=== PATIENT | female | born 1990 | race Caucasian/White ===

== ENCOUNTER 2017-08-21 17:13 | Emergency (ER) | payer MEDICAID ==
--- NOTE | 2017-08-21 18:30 | ED Physician Chart ---
ED Chief Complaint/HPI - Patient Information Date Seen:: 08/21/17 Time Seen:: 18:25 Chief Complaint:: Epigastric pain History of Present Illness:: 27 yo female had epigastric pain for 3 days. Burning sensation. Radiating to back. Nausea, no vomiting. No diarrhea. No fever. Allergies:: Allergies Allergy/AdvReac Type Severity Reaction Status Date / Time No Known Allergies Allergy Verified 08/21/17 17:30 Vitals:: Vital Signs - 8 hr 08/21/17 17:31 Temp 96.6 F HR 70 RR 16 BP 127/78 O2 Sat % 98 ED Past Medical History - Past Medical History Past Medical History: No significant medical hx Social History: Non Smoker, No Alcohol, No Drug Use Surgical History: None ED Assessment - Assessment General Assessment: Gastritis ED Septic Shock - <6hrs of presentation: Vital Signs: Vital Signs - 8 hr 08/21/17 17:31 Temp 96.6 F HR 70 RR 16 BP 127/78 O2 Sat % 98
[2017-08-21] MEDS ORDERED: Metoclopramide 5 mg/mL 2mL Vial IVP STA (18:36)
[2017-08-21 19:53] LABS: HEMATOCRIT 37.1 % (41.0-60); HEMOGLOBIN 12.4 gm/dL (12-16); MEAN CELL VOLUME 85.3 fl (81-100); MEAN CORPUSCULAR HEMOGLOBIN 28.5 pg (27.0-31.0); MEAN CORPUSCULAR HGB CONC 33.4 pg (28.0-36.0); RED BLOOD COUNT 4.34 Mil/cmm (3.80-5.10); RED CELL DISTRIBUTION WIDTH 12.5 % (11.5-20.0)
[2017-08-21 19:54] LABS: % BASOPHILS 0.3 % (0.0-2.0); % EOSINOPHILS 1.9 % (0.0-5.0); % LYMPHOCYTES 25.9 % (20.0-50.0); % MONOCYTES 5.9 % (2.0-10.0); EOSINOPHILE ABSOLUTE 0.2 Th/cmm (0.1-0.4); LYMPHOCYTE ABSOLUTE 2.6 Th/cmm (1.5-3.0); MEAN PLATELET VOLUME 8.5 fl; MONOCYTE ABSOLUTE 0.6 Th/cmm (0.3-1.0); NEUTROPHILE ABSOLUTE 6.6 Th/cmm (1.8-8.0); PLATELET COUNT 243 Th/cmm (150-400)
[2017-08-21] MEDS ORDERED: Pantoprazole 40 mg EC Tab PO STA (20:22)
[2017-08-21] MEDS ORDERED: Pantoprazole 40 mg EC Tab PO ONE (20:25)
[2017-08-22] MEDS ORDERED: Pantoprazole 40 mg EC Tab PO SCH (09:00)
== END 2017-08-21 21:10 | disposition home or self-care (01) ==
LOC: ER 17:13
DX: K29.70 Gastritis, unspecified, without bleeding (principal)
CPT/HCPCS: 36415-UA; 83690-TC; 85025-TC; Z7502; Z7610